=== PATIENT | male | born 1975 | race Two or more races ===

== ENCOUNTER 2025-06-23 11:17 | Inpatient (IN) | payer OTHER ==
[~2025-06-23] VITALS: Ht 170.2 cm; Wt 86.5 kg
--- NOTE | 2025-06-23 12:16 | DVH ---
EXAM: XY CHEST PORTABLE Indication: chest pain Technique: Single frontal view of the chest was obtained Comparison: None FINDINGS: Lines and Tubes: None Lungs: No focal consolidation. Pleura: No effusion. No pneumothorax. Cardiomediastinal contours: Unremarkable Bones: No acute osseous abnormality. IMPRESSION: No acute cardiopulmonary disease.
--- NOTE | 2025-06-23 12:23 | ECG ---
[facility] Test Date: 2025-06-23 Test Time: 12:22:19 Pat Name: TRAY HAMMOND Department: ED Room: 0212T Gender: M Civil Celebrant: GEORGE : 1975 Requested By: ZACHARY ARENAS Order Number: [id number] Reading MD: Mitchell Riddle Measurements Intervals [place] Rate: 60 P: 6 [place]: 142 QRS: 4 QRSD: 90 T: -1 QT: 402 QTc: 402 Interpretive Statements Sinus rhythm Borderline repolarization abnormality Electronically Signed On 06-26-2025 20:31:43 PDT by Mitchell Riddle Please click the below link to view image of tracing.
[2025-06-23 12:28] LABS: Hematocrit 47.1 % (41.0-53.0); Hemoglobin 16.2 g/dL (13.5-17.5); Mean Corpuscular Hemoglobin 31.3 pg (28.0-32.0); Mean Corpuscular Volume 91.0 fL (80.0-100.0); Nucleated Red Blood Cells % 0.1 %
[2025-06-23 12:30] LABS: Chloride 107 mmol/L (98-107); Potassium 4.2 mmol/L (3.5-5.1); Sodium 143 mmol/L (136-145)
[2025-06-23 12:31] LABS: Anion Gap 9 (5-15); Carbon Dioxide 27 mmol/L (20-31)
--- NOTE | 2025-06-23 12:31 | ED.PDOC ---
History of Present Illness HPI Comments 50-year-old male presents to the ER with prior medical history of vertigo in the chief complaint of chest pain. Patient reports on having dizziness, nausea, left arm numbness come is, dry mouth, left-sided chest pain(7/10) while he was at work yesterday. When the patient went home, he took meclizine due from him assuming the these onset symptoms are from his vertigo. The patient woke up this morning with mild and chest pain. Denies chills, fever, N/V/D. No other associated symptoms, modifiers, recent injuries or sick contacts present at this time. Chief Complaint: Chest Pain Time Seen by MD: 12:30 Primary Care Provider: NONE Reviewed Notes: Nurses Notes, Medications, Allergies Allergies: Coded Allergies: NO KNOWN ALLERGIES (Unverified , 04/26/13) Home Meds No Active Prescriptions or Reported Meds Information Source: Patient Mode of Arrival: Ambulatory Severity: Moderate Timing: Hours Duration: Since onset, Hours Prehospital treatment: None Past Medical History PAST MEDICAL HISTORY: Denies Surgical History: Denies all surgeries Family History Family History: Reviewed,noncontributory to illness, Unknown Social History Smoker: Non-Smoker Alcohol: Other Drugs: Denies Drug Use Lives In: Home Constitutional: denies: chills, diaphoresis, fatigue, fever, malaise, sweats, weakness, others EENTM: denies: blurred vision, double vision, ear bleeding, ear discharge, ear drainage, ear pain, ear ringing, eye pain, eye redness, hearing loss, mouth pain, mouth swelling, nasal discharge, nose bleeding, nose congestion, nose pain, photophobia, tearing, throat pain, throat swelling, voice changes, others Respiratory: reports: shortness of breath; denies: cough, hemoptysis, orthopnea, SOB at rest, SOB with excertion, stridor, wheezing, others Cardiovascular: reports: chest pain, left arm pain; denies: dizzy spells, diaphoresis, Dyspnea on exertion, edema, irregular heart beat, lightheadedness, palpitations, PND, syncope, others Gastrointestinal: denies: abdomen distended, abdominal pain, blood streaked bowels, constipated, diarrhea, dysphagia, difficulty swallowing, hematemesis, melena, nausea, poor appetite, poor fluid intake, rectal bleeding, rectal pain, vomiting, others Genitourinary: denies: burning, dysuria, flank pain, frequency, hematuria, incontinence, penile discharge, penile sore, pain, testicle pain, testicle swelling, urgency, others Neurological: reports: dizziness; denies: fainting, headache, left sided numbness, left sided weakness, numbness, paresthesia, pre-existing deficit, right sided numbness, right sided weakness, seizure, speech problems, tingling, tremors, weakness, others Musculoskeletal: denies: back pain, gout, joint pain, joint swelling, muscle pain, muscle stiffness, neck pain, others Integumetry: denies: bruises, change in color, change in hair/nails, dryness, laceration, lesions, lumps, rash, wounds, others Allergic/Immunocompromised: denies: Difficulty Healing, Frequent Infections, Hives, Itching, others Hematologic/Lymphatic: denies: anemia, blood clots, easy bleeding, easy bruising, swollen glands, others Endocrine: denies: excessive hunger, excessive sweating, excessive thirst, excessive urination, flushing, intolerance to cold, intolerance to heat, unexplained weight gain, unexplained weight loss, others Psychiatric: denies: anxiety, bipolar disorder, depression, hopeless, panic disorder, schizophrenia, sleepless, suicidal, others All Other Systems: Reviewed and Negative Physical Exam General Appearance: No Apparent Distress, Normal HEENT: Normal ENT Inspection, Pharynx Normal, TMs Normal Neck: Full Range of Motion, Non-Tender, Normal, Normal Inspection Respiratory: Chest Non-Tender, Lungs Clear, No Accessory Muscle Use, No Respiratory Distress, Normal Breath Sounds Cardiovascular: No Edema, No JVD, No Murmur, No Gallop, Normal Peripheral Pulses, Regular Rate/Rhythm Breast Exam: Deferred Gastrointestinal: No Organomegaly, Non Tender, No Pulsatile Mass, Normal Bowel Sounds, Soft Genitalia: Deferred Pelvic: Deferred Rectal: Deferred Extremities: No calf tenderness, Normal capillary refill, Normal inspection, Normal range of motion, Non-tender, No pedal edema Musculoskeletal : Apperance: Normal Neurologic: Alert, primary special education teacher II-XII nml as Tested, No Motor Deficits, Normal Affect, Normal Mood, No Sensory Deficits Cerebellar Function: Normal Reflexes: Normal Skin: Dry, Normal Color, Warm Lymphatic: No Adenopathy Was a procedure done? Was a procedure done?: No EKG EKG : Pulse Rate (adult): 64 [place]: Normal Cardiac Rhythm: NSR Block: None Hypertrophy: None ST: Normal Differential Dx Considerations may include: acs, cva, viral syndrome, uti X-Ray, Labs, Meds, VS Vital Signs Date Time Temp Pulse Resp B/P (MAP) Pulse Ox O2 Delivery O2 Flow Rate FiO2 06/23/25 14:20 54 06/23/25 13:18 65 17 138/87 (104) 97 06/23/25 12:31 64 06/23/25 12:22 60 06/23/25 11:41 64 06/23/25 11:25 97.8 70 18 141/91 96 97.8 06/23/25 11:23 64 Lab Test 06/23/25 14:51 06/23/25 13:21 06/23/25 12:05 Range/Units Troponin I High Sensitivity Pending < 3 L < 3 L </=54 ng/L White Blood Count 5.5 4.4-10.8 10^3/uL Red Blood Count 5.17 4.5-5.90 10^6/uL Hemoglobin 16.2 13.5-17.5 g/dL Hematocrit 47.1 41.0-53.0 % Mean Corpuscular Volume 91.0 80.0-100.0 fL Mean Corpuscular Hemoglobin 31.3 28.0-32.0 pg Mean Corpuscular Hemoglobin Concent 34.4 32.0-36.0 g/dL Red Cell Distribution Width 13.2 11.8-14.3 % Platelet Count 220 140-450 10^3/uL Mean Platelet Volume 8.7 6.9-10.8 fL Neutrophils (%) (Auto) 50.8 37.0-80.0 % Lymphocytes (%) (Auto) 39.1 10.0-50.0 % Monocytes (%) (Auto) 7.4 0.0-12.0 % Eosinophils (%) (Auto) 2.2 0.0-7.0 % Basophils (%) (Auto) 0.5 0.0-2.0 % Neutrophils # (Auto) 2.8 1.6-8.6 10 ^3/uL Lymphocytes # (Auto) 2.2 0.4-5.4 10 ^3/uL Monocytes # (Auto) 0.4 0-1.3 10 ^3/uL Eosinophils # (Auto) 0.1 0-0.8 10 ^3/uL Basophils # (Auto) 0 0-0.2 10 ^3/uL Nucleated Red Blood Cells 0.1 % Sodium Level 143 136-145 mmol/L Potassium Level 4.2 3.5-5.1 mmol/L Chloride Level 107 98-107 mmol/L Carbon Dioxide Level 27 20-31 mmol/L Anion Gap 9 5-15 Blood Urea Nitrogen 13 9-23 mg/dL Creatinine 0.96 0.700-1.30 mg/dL Glomerular Filtration Rate Calc 95 >90 mL/min BUN/Creatinine Ratio 13.5 10.0-20.0 Serum Glucose 102 74-106 mg/dL Calcium Level 9.3 8.7-10.4 mg/dL Time of 1ST Reevaluation: 13:00 Reevaluation 1ST: Unchanged Patient Education/Counseling: Diagnosis, Treatment, Prognosis Family Education/Counseling: No Family Present SEPSIS Sepsis Screen Date sepsis recognized/suspect: Jun 23, 2025 Time Sepsis recognized/suspect: 8 Recent Procedure: No Respiratory Rate >20: No Heart Rate >90: No Temp<36 C (96.8 F) or >38.3 C: No SBP <90 or MAP <65 mmHG: No New Acute Mental Status Change: No Is the patient on CPAP, BIPAP,: No Physician Orders Troponin-I Hs (06/23/25 14:43) Electrocardigram (06/23/25 12:43) Electrocardigram (06/23/25 14:43) Chest Portable (06/23/25 11:44) Vital Signs Date Time Temp Pulse Resp B/P (MAP) Pulse Ox O2 Delivery O2 Flow Rate FiO2 06/23/25 14:20 54 06/23/25 13:18 65 17 138/87 (104) 97 06/23/25 12:31 64 06/23/25 12:22 60 06/23/25 11:41 64 06/23/25 11:25 97.8 70 18 141/91 96 97.8 06/23/25 11:23 64 Laboratory Tests Test 06/23/25 12:05 White Blood Count 5.5 10^3/uL (4.4-10.8) Departure 1 Departure Time of Disposition: 15:13 (Patient presented with chest pain that was concerning for possible STEMI, ACS, PE, Pneumonia, Muscle Strain, COPD, Dissection. Data: 1. I ordered and reviewed the result of at least 3 labs including a CBC, BMP, and Troponin. 2. I independently interpreted the following tests: EKG which shows sinus arrhythmia and Chest X-ray which shows benign chest.Risk:This patient has a high risk of morbidity due to further diagnostic testing or treatment and may suffer from an acute cardiac or respiratory disorder. Workup reveals concern for ACS and patient should be admitted for further workup and possible expert consultation. ) Impression: Primary Impression: Acute chest pain Disposition: ADMITTED INPATIENT Admit to: Tele Condition: Guarded e-Prescriptions No Active Prescriptions or Reported Meds Critical Care Note Critical Care Time?: Yes Critical care comment: Acute chest pain Authorized and Performed by: Zachary Hardin MD Total critical care time: Approximately 39 minutes Due to a high probability of clinically significant, life threatening deterio ration, the patient required my highest level of preparedness to intervene emergently and I personally spent this critical care time directly and personally managing the patient. This critical care time included obtaining a history; examining the patient; pulse oximetry; ordering and review of studies; arranging urgent treatment with development of a management plan; evaluation of patient's response to treatment; frequent reassessment; and, discussions with other providers. This critical care time was performed to assess and manage the high probability of imminent, life-threatening deterioration that could result in multi-organ failure. It was exclusive of separately billable procedures and treating other patients and teaching time. Please see my other sections and the rest of the note for further information on patient assessment and treatment. Stability Stability form required: No Heart Score Heart Score: Heart Score Response (Comments) Value History Slightly Suspicious 0 EKG Repolarization Disturb 1 Age 45-64 1 Risk Factors >3 or Hx ASHD 2 Troponin >3 x's Normal limit 2 Total 6 I personally scribed for ZACHARY HARDIN MD ([email or web address]) on 06/23/25 at 12:31. Electronically submitted by Jamie Ramos ([email or web address]). ZACHARY HARDIN MD Jun 23, 2025 12:31
[2025-06-23 12:32] LABS: Calcium 9.3 mg/dL (8.7-10.4)
[2025-06-23 12:36] LABS: BUN/Creatinine Ratio 13.5 (10.0-20.0); Blood Urea Nitrogen 13 mg/dL (9-23); Glucose 102 mg/dL (74-106)
[2025-06-23] MEDS ORDERED: NITROGLYCERIN 0.4 MG SL TAB SL PRN (16:15)
--- NOTE | 2025-06-23 16:18 | DVHHP2 ---
History of Present Illness History of Present Illness Patient is 50 years old male with past medical history of hypertension, history of chronic vertigo came with a complaint of chest pain. As per patient he st arted having chest pain yesterday at work associated tingling of the left arm that came gradually. Patient reported tingling of the left arm started then followed by pain in the left chest, sharp, the on the left side of the chest, initially intermittent then persistent, 7/10, associated with shortness of breaths, palpitation. Patient also reported he was feeling dizzy at the same time. After the patient went to home and he wake up with chest pain and also tingling of the left arm. Patient denied any fever, cough, diarrhea, acute joint redness or swelling, dysarthria or change in vision. Initial lab workup revealed troponin I with a normal limit, chest x-ray no acute abnormality. EKG revealed sinus rhythm, no acute STT wave changes. PMH-hypertension, history of chronic vertigo PSH- none Family history-mom has diabetes mellitus and hypertension, dad healthy Allergy- NKDA Personal History/ Social History- occasional smoker once in a month, denies alcoholism or substance abuse, lives alone at home Medications-amlodipine, meclizine Review of Systems Review of Systems Review of other system Gastrointestinal- denies any rectal bleeding, nausea or vomiting Musculoskeletal-denies acute joint swelling or tenderness or redness Neurological- denies acute dysarthria, dysphagia, change in vision Psychiatry- denies depression or SI or HI Skin- denies acute rash or purpura Allergies: Coded Allergies: NO KNOWN ALLERGIES (Unverified , 04/26/13) Medications Current Medications Medications Dose Ordered Sig/Logan Route Start Time Stop Time Status Last Admin Dose Admin Sodium Chloride 10 ml Q8HR IV 06/23/25 22:00 UNV Enoxaparin Sodium 40 mg DAILY SC 06/24/25 10:00 UNV Nitroglycerin 0.4 mg Q5MINP PRN SL 06/23/25 16:15 UNV Morphine Sulfate 2 mg Q30M PRN IV 06/23/25 16:15 UNV Exam Vital Signs Vital Signs Date Time Temp Pulse Resp B/P (MAP) Pulse Ox O2 Delivery O2 Flow Rate FiO2 06/23/25 14:20 54 06/23/25 13:18 17 138/87 (104) 97 06/23/25 11:25 97.8 97.8 Exam General examination- awake, alert, oriented HEENT- PEERLA, no acute nasal discharge Cardiovascular- S1-S2 audible, rate and rhythm regular, no murmur Respiratory- CTAB, no wheeze or rhonchi Gastrointestinal-nontender, bowel sound+. Nondistended Musculoskeletal-no acute joint swelling or tenderness or redness Lower extremity- no leg edema Neurological- cranial nerves intact, no acute dysarthria or dysphagia Psychiatry- denies depression or SI or HI Skin- no acute rash or purpura Labs/Xrays Labs Test 06/23/25 14:51 06/23/25 12:05 Range/Units Troponin I High Sensitivity < 3 L </=54 ng/L White Blood Count 5.5 4.4-10.8 10^3/uL Red Blood Count 5.17 4.5-5.90 10^6/uL Hemoglobin 16.2 13.5-17.5 g/dL Hematocrit 47.1 41.0-53.0 % Mean Corpuscular Volume 91.0 80.0-100.0 fL Mean Corpuscular Hemoglobin 31.3 28.0-32.0 pg Mean Corpuscular Hemoglobin Concent 34.4 32.0-36.0 g/dL Red Cell Distribution Width 13.2 11.8-14.3 % Platelet Count 220 140-450 10^3/uL Mean Platelet Volume 8.7 6.9-10.8 fL Neutrophils (%) (Auto) 50.8 37.0-80.0 % Lymphocytes (%) (Auto) 39.1 10.0-50.0 % Monocytes (%) (Auto) 7.4 0.0-12.0 % Eosinophils (%) (Auto) 2.2 0.0-7.0 % Basophils (%) (Auto) 0.5 0.0-2.0 % Neutrophils # (Auto) 2.8 1.6-8.6 10 ^3/uL Lymphocytes # (Auto) 2.2 0.4-5.4 10 ^3/uL Monocytes # (Auto) 0.4 0-1.3 10 ^3/uL Eosinophils # (Auto) 0.1 0-0.8 10 ^3/uL Basophils # (Auto) 0 0-0.2 10 ^3/uL Nucleated Red Blood Cells 0.1 % Sodium Level 143 136-145 mmol/L Potassium Level 4.2 3.5-5.1 mmol/L Chloride Level 107 98-107 mmol/L Carbon Dioxide Level 27 20-31 mmol/L Anion Gap 9 5-15 Blood Urea Nitrogen 13 9-23 mg/dL Creatinine 0.96 0.700-1.30 mg/dL Glomerular Filtration Rate Calc 95 >90 mL/min BUN/Creatinine Ratio 13.5 10.0-20.0 Serum Glucose 102 74-106 mg/dL Calcium Level 9.3 8.7-10.4 mg/dL SEPSIS Sepsis Screen Date sepsis recognized/suspect: Jun 23, 2025 Time Sepsis recognized/suspect: 1127 Recent Procedure: No Respiratory Rate >20: No Heart Rate >90: No Temp<36 C (96.8 F) or >38.3 C: No SBP <90 or MAP <65 mmHG: No New Acute Mental Status Change: No Is the patient on CPAP, BIPAP,: No Physician Orders Electrocardigram (06/23/25 12:43) Electrocardigram (06/23/25 14:43) Chest Portable (06/23/25 11:44) Admit (06/23/25 16:14) Code Status (06/23/25 16:14) Sodium Chloride Lock (Saline Lock Ns) (06/23/25 22:00) Enoxaparin Sodium (Lovenox) (06/24/25 10:00) Complete Blood Count (06/24/25 04:00) Comprehensive Metabolic Panel (06/24/25 04:00) Cardiac Diet-2gna,Lofat,Lochol (06/23/25 Dinner) Echo 2d Mode Cardiac Dop (06/23/25 16:14) Nitroglycerin Sublingual (Ntrostat Subli (06/23/25 16:15) Morphine Sulfate Injection (06/23/25 16:15) Notify Md Of Changes From Base (06/23/25 16:14) Tunnel Elastic Operator Zigzag For 24 Hours (06/23/25 16:14) Aspirin Tablet (06/23/25 16:30) Atorvastatin (Lipitor) (06/23/25 16:30) Pantoprazole Tablet (Protonix Tablet) (06/23/25 16:30) Vital Signs Date Time Temp Pulse Resp B/P (MAP) Pulse Ox O2 Delivery O2 Flow Rate FiO2 06/23/25 14:20 54 06/23/25 13:18 65 17 138/87 (104) 97 06/23/25 12:31 64 06/23/25 12:22 60 06/23/25 11:41 64 06/23/25 11:25 97.8 70 18 141/91 96 97.8 06/23/25 11:23 64 Laboratory Tests Test 06/23/25 12:05 White Blood Count 5.5 10^3/uL (4.4-10.8) Assessment/Plan Assessment/Plan Assessment and plan Acute chest pain likely due to unstable angina #rule out acute coronary syndrome # hypertension -EKG sinus rhythm, no acute STT wave changes, - troponin I with In normal limit -pending echo 2D -ordered aspirin 81 mg p.o. daily -ordered atorvastatin 40 mg p.o. q.h.s. # dizziness -ordered orthostatic vitals # chronic vertigo -meclizine PRN Goals of care, Code status full code ; discussed with >15 minutes PUD prophylaxis: Pantoprazole DVT prophylaxis: Lovenox Plan discussed with Dr. Capellan , nursing staff, Total time spent on patient evaluation, chart review, assessment and plan, discussion discussion >35 minutes Plan discussed with: Patient, Other (RN) My Orders Orders - JENNIE ROBLERO RESIDENT Procedure Category Date Status Time Admit ADMIT 06/23/25 Transmitted 16:14 Code Status CODE 06/23/25 Transmitted 16:14 Sodium Chloride Lock PHA 06/23/25 Logged (Saline Lock Ns) 22:00 Enoxaparin Sodium PHA 06/24/25 Logged (Lovenox) 10:00 Complete Blood Count LAB 06/24/25 Verified 04:00 Comprehensive LAB 06/24/25 Verified Metabolic Panel 04:00 Cardiac DIET 06/23/25 Transmitted Diet-2gna,Lofat,Lochol Dinner Echo 2d Mode Cardiac US 06/23/25 Logged DOP 16:14 Nitroglycerin PHA 06/23/25 Logged Sublingual (Ntrostat 16:15 Morphine Sulfate PHA 06/23/25 Logged Injection 16:15 Notify Of Changes AUGUSTIN 06/23/25 In Process From Base 16:14 Tunnel Elastic Operator Zigzag For AUGUSTIN 06/23/25 In Process 24 Hours 16:14 Aspirin Tablet PHA 06/23/25 Transmitted 16:30 Atorvastatin (Lipitor) PHA 06/23/25 Transmitted 16:30 Pantoprazole Tablet PHA 06/23/25 Transmitted (Protonix Tablet) 16:30 Date of Service: Jun 23, 2025 Billing Provider: PRERNA CAPELLAN MD Common Visit Codes: [id number] INP/OBS CARE (HIGH) Secondary Visit Codes: [id number] CARE PLAN 30 MINUTES JENNIE ROBLERO RESIDENT Jun 23, 2025 16:18
[2025-06-23] MEDS ORDERED: MORPHINE SULFATE 4 MG/ML SYR/VIAL IV PRN (16:30)
[2025-06-23] MEDS: PANTOPRAZOLE 40 MG TAB PO SCH (17:08)
[2025-06-23] MEDS: ATORVASTATIN 20 MG TAB PO SCH (17:08)
[2025-06-23] MEDS: MECLIZINE HCL 25 MG TAB PO PRN (17:09)
[2025-06-23 18:48] LABS: INR 1.01 (0.9-1.15); Partial Thromboplastin Time 28.2 SEC (24.5-34.5); Prothrombin Time 10.7 sec (9.3-11.8)
[2025-06-23 19:03] LABS: Alanine Aminotransferase 34 U/L (7-40); Alkaline Phosphatase 67 U/L (46-116); Anion Gap 13 (5-15); BUN/Creatinine Ratio 14.1 (10.0-20.0); Bilirubin, Total 0.9 mg/dL (0.2-1.0); Blood Urea Nitrogen 14 mg/dL (9-23); Calcium 9.5 mg/dL (8.7-10.4); Carbon Dioxide 25 mmol/L (20-31); Chloride 106 mmol/L (98-107); Glucose 96 mg/dL (74-106); Potassium 4.3 mmol/L (3.5-5.1); Sodium 144 mmol/L (136-145); Total Protein 7.5 g/dL (5.7-8.2)
[2025-06-23 19:07] LABS: Albumin 4.8 g/dL (3.2-4.8)
--- NOTE | 2025-06-23 19:24 | ECG ---
[facility] Test Date: 2025-06-23 Test Time: 14:20:23 Pat Name: TRAY HAMMOND Department: ED Room: 0212T Gender: M Crew Clerk: : 1975 Requested By: ZACHARY ARENAS Order Number: [id number] Reading MD: Mitchell Riddle Measurements Intervals [place] Rate: 54 P: -11 [place]: 179 QRS: 13 QRSD: 90 T: -2 QT: 423 QTc: 401 Interpretive Statements Sinus rhythm Electronically Signed On 06-26-2025 20:32:00 PDT by Mitchell Riddle Please click the below link to view image of tracing.
[2025-06-23 21:00] VITALS: BP 156/99; PULSE 63; RESP 16; TEMP 97.8; O2SAT 99
[2025-06-23] MEDS: SODIUM CHLOR 0.9% PF (SALINE LOCK) 10ML VIAL/SYR IV SCH (21:46)
[2025-06-23 21:50] LABS: Urine Protein, UAD TRACE (Negative)
[2025-06-23 22:27] VITALS: BP 156/99; PULSE 63; RESP 16; TEMP 97.8; O2SAT 99
[2025-06-23 22:30] VITALS: BP 125/80; PULSE 58
[2025-06-24] VITALS (10 sets, daily range): BP systolic 0–157; BP diastolic 70–100; PULSE 53–82; RESP 15–16; TEMP 97.5–98.9; O2SAT 95–97
[2025-06-24 06:45] LABS: Hematocrit 40.8 % (41.0-53.0); Hemoglobin 14.4 g/dL (13.5-17.5); Mean Corpuscular Hemoglobin 32.1 pg (28.0-32.0); Mean Corpuscular Volume 91.2 fL (80.0-100.0); Nucleated Red Blood Cells % 0.1 %
[2025-06-24 06:58] LABS: Alanine Aminotransferase 30 U/L (7-40); Albumin 4.2 g/dL (3.2-4.8); Alkaline Phosphatase 53 U/L (46-116); Anion Gap 11 (5-15); BUN/Creatinine Ratio 14.1 (10.0-20.0); Blood Urea Nitrogen 14 mg/dL (9-23); Calcium 8.9 mg/dL (8.7-10.4); Carbon Dioxide 26 mmol/L (20-31); Chloride 106 mmol/L (98-107); Glucose 90 mg/dL (74-106); Potassium 3.7 mmol/L (3.5-5.1); Sodium 143 mmol/L (136-145); Total Protein 6.7 g/dL (5.7-8.2)
[2025-06-24 06:59] LABS: Bilirubin, Total 1.2 mg/dL (0.2-1.0)
[2025-06-24 07:23] LABS: Magnesium 2.4 mg/dL (1.6-2.6)
[2025-06-24] MEDS: ENOXAPARIN SOD 40 MG/0.4 ML SYRINGE SC SCH (09:56)
--- NOTE | 2025-06-24 12:29 | DVHPNRES ---
Progress Note Date Seen: Jun 24, 2025 Resident Creating Document: JENNIE ROBLERO RESIDENT Medical Necessity Reason Pt with a Central, PICC or Fol: No Subjective Review of Systems Patient is 50 years old male with past medical history of hypertension, history of chronic vertigo came with a complaint of chest pain. As per patient he s tarted having chest pain yesterday at work associated tingling of the left arm that came gradually. Patient reported tingling of the left arm started then followed by pain in the left chest, sharp, the on the left side of the chest, initially intermittent then persistent, 7/10, associated with shortness of breaths, palpitation. Patient also reported he was feeling dizzy at the same time. After the patient went to home and he wake up with chest pain and also tingling of the left arm. Patient denied any fever, cough, diarrhea, acute joint redness or swelling, dysarthria or change in vision. Initial lab workup revealed troponin I with a normal limit, chest x-ray no acute abnormality. EKG revealed sinus rhythm, no acute STT wave changes. PMH-hypertension, history of chronic vertigo PSH- none Family history-mom has diabetes mellitus and hypertension, dad healthy Allergy- NKDA Personal History/ Social History- occasional smoker once in a month, denies alcoholism or substance abuse, lives alone at home Medications-amlodipine, meclizine Patient was seen today at bedside, labs and chart reviewed. Ordered cardiology consult for possible cardiac stress test. Cardiology recommended for nuclear stress test. Patient reported feeling better today. Objective vital signs Vital Sign Date Time Temp Pulse Resp B/P (MAP) Pulse Ox O2 Delivery O2 Flow Rate FiO2 06/24/25 09:55 121/79 06/24/25 09:00 97.6 59 16 96 97.6 06/24/25 08:10 Room Air* 0 21 Total Intake and Output 06/23/25 06/23/25 06/24/25 15:00 23:00 07:00 Intake Total 400 ml Balance 400 ml medications Current Medications Medications Dose Ordered Sig/Logan Route Start Time Stop Time Status Last Admin Dose Admin Sodium Chloride 10 ml Q8HR IV 06/23/25 22:00 06/24/25 09:56 10 ML Enoxaparin Sodium 40 mg DAILY SC 06/24/25 10:00 06/24/25 09:56 40 MG Nitroglycerin 0.4 mg Q5MINP PRN SL 06/23/25 16:15 Morphine Sulfate 2 mg Q30M PRN IV 06/23/25 16:30 Atorvastatin Calcium 40 mg HS PO 06/23/25 16:30 06/23/25 21:46 40 MG Pantoprazole Sodium 40 mg DAILY@0600 PO 06/23/25 16:30 06/24/25 05:07 40 MG Aspirin 81 mg DAILY PO 06/24/25 10:00 06/24/25 09:55 81 MG Amlodipine Besylate 5 mg DAILY PO 06/24/25 10:00 06/24/25 09:55 5 MG Meclizine HCl 25 mg Q6HPRN PRN PO 06/23/25 16:30 06/24/25 05:12 25 MG Examination General examination- awake, alert, oriented HEENT- PEERLA, no acute nasal discharge Cardiovascular- S1-S2 audible, rate and rhythm regular, no murmur Respiratory- CTAB, no wheeze or rhonchi Gastrointestinal-nontender, bowel sound+. Nondistended Musculoskeletal-no acute joint swelling or tenderness or redness Lower extremity- no leg edema Neurological- cranial nerves intact, no acute dysarthria or dysphagia Psychiatry- denies depression or SI or HI Skin- no acute rash or purpura laboratory and microbiology Laboratory Tests 06/24/25 04:41 Test 06/24/25 04:41 Range/Units Serum Glucose 90 74-106 mg/dL Problem List/Assessment/Plan Problem List/Assessment/Plan Assessment and plan Acute chest pain likely due to unstable angina #rule out acute coronary syndrome # hypertension -EKG sinus rhythm, no acute STT wave changes, - troponin I with In normal limit -echo 2D - aspirin 81 mg p.o. daily - atorvastatin 40 mg p.o. q.h.s. -ordered cardiology consult for possible stress test, -status post cardiology consult, recommended for nuclear stress test # dizziness -ordered orthostatic vitals -Jonel-Hallpike maneuver negative # chronic vertigo -meclizine PRN Goals of care, Code status full code ; discussed with >15 minutes PUD prophylaxis: Pantoprazole DVT prophylaxis: Lovenox Plan discussed with Dr. Capellan , nursing staff, Total time spent on patient evaluation, chart review, assessment and plan, discussion discussion >35 minutes Plan discussed with: Patient, Other (RN) Plan discussed with: Patient, Other (RN) My Orders My Orders Orders - JENNIE ROBLERO Procedure Category Date Status Time Admit ADMIT 06/23/25 Transmitted 16:14 Code Status CODE 06/23/25 Transmitted 16:14 Sodium Chloride Lock PHA 06/23/25 In Process (Saline Lock Ns) 22:00 Enoxaparin Sodium PHA 06/24/25 In Process (Lovenox) 10:00 Cardiac DIET 06/23/25 Transmitted Diet-2gna,Lofat,Lochol Dinner Nitroglycerin PHA 06/23/25 In Process Sublingual (Ntrostat 16:15 Notify Md Of Changes AUGUSTIN 06/23/25 In Process From Base 16:14 Physician/Allergy/Immunology For AUGUSTIN 06/23/25 In Process 24 Hours 16:14 Atorvastatin (Lipitor) PHA 06/23/25 In Process 16:30 Pantoprazole Tablet PHA 06/23/25 In Process (Protonix Tablet) 16:30 Orthostatic Vital ORDERS 06/23/25 Transmitted Signs 16:22 Morphine Sulfate PHA 06/23/25 In Process Injection 16:30 Aspirin Tablet PHA 06/24/25 In Process 10:00 Amlodipine Tablet PHA 06/24/25 In Process (Norvasc Tablet) 10:00 Meclizine Tablet PHA 06/23/25 In Process (Antivert Tablet) 16:30 Electrocardigram EKG 06/23/25 Logged 17:55 Echo 2d Mode Cardiac US 06/24/25 Logged DOP 16:14 * Cardiology Consult CONS 06/24/25 Transmitted 11:52 Date of Service: Jun 24, 2025 Billing Provider: JENNIE ROBLERO Common Visit Codes: [id number] INP/OBS CARE(HIGH) JENNIE ROBLERO Jun 24, 2025 12:29 PRERNA CAPELLAN MD Jun 24, 2025 20:07
--- NOTE | 2025-06-24 15:26 | DVHINCON2 ---
Date Seen: Jun 24, 2025 Referring Physician MD Juliano resident Reason for Consultation Chest pain, stress test evaluation History of Present Illness This is a 50-year-old male patient who presents to the emergency room with chief complaint of chest pain. The patient reports that the chest pain began on 06/21/2025 while at work. He began experiencing a headache first. He then described left arm numbness which then traveled all the way to the left side of his chest. He describes the chest pain as unprovoked, intermittent, pressure- like in nature, left-sided with radiation down his left arm. Associated symptoms include shortness of breath, dizziness, and nausea. He came to the emergency room for further evaluation. Initial twelve lead electrocardiogram reveals normal sinus rhythm this minimal nonspecific ST segment changes to inferior leads. Serial troponin levels have been negative. Significant past medical history includes hypertension, vertigo, tobacco use, and obesity. Patient admits to undergoing a stress test approximately five years ago, in which he reports results were normal. Past Medical History Past medical history reviewed. No other significant than mentioned above. Past Surgical History Hernia repair Family History: Hyperlipidemia G8 MOTHER Hypertension G8 MOTHER Vertigo G8 MOTHER Family History Family history reviewed. Social History Patient admits to occasional cigar use Denies illicit drugs Denies alcohol Allergies: Coded Allergies: NO KNOWN ALLERGIES (Unverified , 04/26/13) Home Meds Denies taking any prescribed medications Current Medications Current Medications Medications (Trade) Dose Ordered Sig/Logan Route PRN Reason Start Time Stop Time Status Last Admin Sodium Chloride (Saline Lock Ns) 10 ml Q8HR IV 06/23/25 22:00 06/24/25 09:56 Enoxaparin Sodium (Lovenox) 40 mg DAILY SC 06/24/25 10:00 06/24/25 09:56 Nitroglycerin (Ntrostat Sublingual) 0.4 mg Q5MINP PRN SL FOR CHEST PAIN 06/23/25 16:15 Morphine Sulfate 2 mg Q30M PRN IV FOR CHEST PAIN 06/23/25 16:30 Atorvastatin Calcium (Lipitor) 40 mg HS PO 06/23/25 16:30 06/23/25 21:46 Pantoprazole Sodium (Protonix Tablet) 40 mg DAILY@0600 PO 06/23/25 16:30 06/24/25 05:07 Aspirin 81 mg DAILY PO 06/24/25 10:00 06/24/25 09:55 Amlodipine Besylate (Norvasc Tablet) 5 mg DAILY PO 06/24/25 10:00 06/24/25 09:55 Meclizine HCl (Antivert Tablet) 25 mg Q6HPRN PRN PO DIZZINESS 06/23/25 16:30 06/24/25 05:12 Review of Systems Constitutional: No symptom reported Ears, Nose, & Throat: No symptom reported Eyes: No symptom reported Neurological: Lightheadedness Pulmonary/Respiratory: Shortness of breath Cardiovascular: Chest pain Gastrointestinal: Nausea Genitourinary: No symptom reported Musculoskeletal: No symptom reported Skin: No symptom reported Psychiatric: No symptom reported Endocrine: No symptom reported Hematologic/Lymphatic: No symptom reported Vital Signs Vital Signs Date Time Temp Pulse Resp B/P (MAP) Pulse Ox O2 Delivery O2 Flow Rate FiO2 06/24/25 13:00 98.9 63 15 128/78 (95) 96 98.9 06/24/25 08:10 Room Air* 0 21 Physical Exam General Appearance: Cooperative. Obese Pulmonary/Respiratory: Clear, bilateral breaths sounds. Cardiovascular/Chest: Regular rate and rhythm. Peripheral Pulses: 2+ Radial (R). 2+ Radial (L). 2+ Pedal (R). 2+ Pedal (L) Abdominal Exam: Normal bowel sounds. Ankle Exam: Negative ankle edema Lower extremities: Negative lower extremity edema Neuro/Mental Status: A/OX4, coherent. Thoughts/Psych: Normal thought pattern. Appropriate mood and affect. Good judgment and insight. Appearance: No acute distress. Skin Exam: Normal inspection. Normal color. Warm and dry. Labs/Diagnostic Data Labs Test 06/24/25 14:57 06/24/25 04:41 06/23/25 20:58 06/23/25 14:51 Range/Units White Blood Count 5.7 4.4-10.8 10^3/uL Red Blood Count 4.47 L 4.5-5.90 10^6/uL Hemoglobin 14.4 13.5-17.5 g/dL Hematocrit 40.8 #L 41.0-53.0 % Mean Corpuscular Volume 91.2 80.0-100.0 fL Mean Corpuscular Hemoglobin 32.1 H 28.0-32.0 pg Mean Corpuscular Hemoglobin Concent 35.2 32.0-36.0 g/dL Red Cell Distribution Width 13.7 11.8-14.3 % Platelet Count 201 140-450 10^3/uL Mean Platelet Volume 9.0 6.9-10.8 fL Neutrophils (%) (Auto) 49.7 37.0-80.0 % Lymphocytes (%) (Auto) 35.5 10.0-50.0 % Monocytes (%) (Auto) 10.4 0.0-12.0 % Eosinophils (%) (Auto) 4.0 0.0-7.0 % Basophils (%) (Auto) 0.4 0.0-2.0 % Neutrophils # (Auto) 2.8 1.6-8.6 10 ^3/uL Lymphocytes # (Auto) 2.0 0.4-5.4 10 ^3/uL Monocytes # (Auto) 0.6 0-1.3 10 ^3/uL Eosinophils # (Auto) 0.2 0-0.8 10 ^3/uL Basophils # (Auto) 0 0-0.2 10 ^3/uL Nucleated Red Blood Cells 0.1 % Sodium Level 143 136-145 mmol/L Potassium Level 3.7 3.5-5.1 mmol/L Chloride Level 106 98-107 mmol/L Carbon Dioxide Level 26 20-31 mmol/L Anion Gap 11 5-15 Blood Urea Nitrogen 14 9-23 mg/dL Creatinine 0.99 0.700-1.30 mg/dL Glomerular Filtration Rate Calc 92 >90 mL/min BUN/Creatinine Ratio 14.1 10.0-20.0 Serum Glucose 90 74-106 mg/dL Calcium Level 8.9 8.7-10.4 mg/dL Magnesium Level 2.4 1.6-2.6 mg/dL Total Bilirubin 1.2 H 0.2-1.0 mg/dL Aspartate Amino Transferase (AST) 23 13-40 U/L Alanine Aminotransferase (ALT) 30 7-40 U/L Alkaline Phosphatase 53 46-116 U/L Total Protein 6.7 5.7-8.2 g/dL Albumin 4.2 3.2-4.8 g/dL Urine Color Yellow Yellow Urine Clarity Clear Clear Urine pH 5.5 5.0-9.0 Urine Specific [place] 1.031 1.001-1.035 Urine Protein Trace H Negative Urine Ketones Trace Negative Urine Blood 1+ H Negative /uL Urine Nitrite Negative Negative Urine Bilirubin Negative Negative Urine Urobilinogen Normal Negative mg/dL Urine Leukocyte Esterase Negative Negative /uL Urine RBC 9 0 - 3 /hpf Urine Microscopic WBC 2 0-3 /HPF Urine Squamous Epithelial Cells None seen <5 /hpf Urine Bacteria None seen None Seen /hpf Urine Mucus Few None Seen Urine Glucose Normal Normal mg/dL Prothrombin Time 10.7 9.3-11.8 sec Prothrombin Time INR 1.01 0.9-1.15 Activated Partial Thromboplast Time 28.2 24.5-34.5 SEC D-Dimer, Quantitative < 0.19 0.0-0.49 mg/L FEU Test 06/23/25 13:21 06/23/25 12:05 Range/Units Thyroid Stimulating Hormone (TSH) 1.61 0.55-4.78 uIU/mL Hemoglobin A1c 5.7 <5.7 % A1C B-Type Natriuretic Peptide 2.54 0-100 pg/mL Assessment Chest pain, rule out coronary ischemia Rule out structural heart disease Hypertension ?Anxiety Tobacco use Plan/Recommendation We will continue with the following plan/recommendations (Dr. Riddle): * Transthoracic echocardiogram to evaluate cardiac function * Chest pain protocol * HEART score: 4 points (moderate score) * Blood pressure control * Single antiplatelet therapy and lipid-lowering agent * Close cardiac surveillance * Nuclear stress test Given the patient's clinical presentation, moderate HEART score and comorbidities, we will offer the patient a nuclear stress test. Patient was initially offered treadmill stress test, but declined stating that he still feeling symptoms of lightheadedness and is afraid he might fall on the treadmill. Patient requesting nuclear stress test instead. Plan discussed with the patient and the patient is agreeable. Thank you for allowing us to care for this patient. Please call with any questions or concerns. Critical care time spent: 44 minutes This medical document was created using an electronic medical record system with voice recognition software and computerized dictation system. Although this document has been carefully reviewed, there might still be some phonetic and t ypographical errors. Occasional wrong-word or ``sound-alike substitutions may have occurred due to the inherent limitations of voice recognition software. These areas are purely typographical due to imperfections of the software programs and do not reflect any compromise in the patient's medical care. Please read the chart carefully and recognize, using context, where these hobbs bstitutions have occurred. Plan discussed with: Patient NYHA Physical activity limitations: NA Date of Service: Jun 24, 2025 Billing Provider: MARGO ORTIZ Cardiology Common Codes: 19176-[id number] INP/OBS CARE (High) Cardiology Consultation Codes: 50184-[id number] CONSULT <45MIN MARGO ORTIZ Jun 24, 2025 15:26
[2025-06-24 15:56] LABS: Cholesterol 200 mg/dL (< 200)
[2025-06-24 15:58] LABS: HDL Cholesterol 37 mg/dL (40-59); Triglycerides 167 mg/dL (< 150)
[2025-06-24 19:12] LABS: Amphetamine Screen, Urine Neg (NEGATIVE); Barbiturate Scree,Urine Neg (NEGATIVE); Benzodiazephine Screen, Urine Neg (NEGATIVE); Cannabinoid Screen, Urine Neg (NEGATIVE); Cocaine Screen, Urine Neg (NEGATIVE); Opiate Scree,Urine Neg (NEGATIVE); Phencyclidine Screen, Urine Neg (NEGATIVE)
[2025-06-24] MEDS: ZOLPIDEM TARTRATE 5 MG TAB PO ONE (23:02)
[2025-06-25] VITALS (8 sets, daily range): BP systolic 102–162; BP diastolic 77–98; PULSE 55–75; RESP 16–20; TEMP 97.5–98; O2SAT 95–97
[2025-06-25 06:39] LABS: Anion Gap 10 (5-15); Calcium 9.0 mg/dL (8.7-10.4); Carbon Dioxide 26 mmol/L (20-31); Chloride 106 mmol/L (98-107); Potassium 3.8 mmol/L (3.5-5.1); Sodium 142 mmol/L (136-145)
[2025-06-25 06:45] LABS: BUN/Creatinine Ratio 14.6 (10.0-20.0); Blood Urea Nitrogen 14 mg/dL (9-23); Glucose 99 mg/dL (74-106); Magnesium 2.4 mg/dL (1.6-2.6)
[2025-06-25] MEDS: REGADENOSON 0.4 MG/5 ML SYRG IV ONE (09:00)
[2025-06-25] MEDS ORDERED: REGADENOSON 0.4 MG/5 ML SYRG IV ONE (09:03)
--- NOTE | 2025-06-25 17:52 | DVHPNRES ---
Progress Note Date Seen: Jun 25, 2025 Resident Creating Document: JENNIE ROBLERO RESIDENT Medical Necessity Reason Pt with a Central, PICC or Fol: No Subjective Review of Systems Patient is 50 years old male with past medical history of hypertension, history of chronic vertigo came with a complaint of chest pain. As per patient he started having chest pain yesterday at work associated tingling of the left arm that came gradually. Patient reported tingling of the left arm started then followed by pain in the left chest, sharp, the on the left side of the chest, initially intermittent then persistent, 7/10, associated with shortness of breaths, palpitation. Patient also reported he was feeling dizzy at the same time. After the patient went to home and he wake up with chest pain and also tingling of the left arm. Patient denied any fever, cough, diarrhea, acute joint redness or swelling, dysarthria or change in vision. Initial lab workup revealed troponin I with a normal limit, chest x-ray no acute abnormality. EKG revealed sinus rhythm, no acute STT wave changes. PMH-hypertension, history of chronic vertigo PSH- none Family history-mom has diabetes mellitus and hypertension, dad healthy Allergy- NKDA Personal History/ Social History- occasional smoker once in a month, denies alcoholism or substance abuse, lives alone at home Medications-amlodipine, meclizine Patient was seen today at bedside, labs and chart reviewed. Patient had cardiac stress test today. Pending report. Orthostatic vitals negative. Pending echo 2D report. Possible discharge tomorrow Objective vital signs Vital Sign Date Time Temp Pulse Resp B/P (MAP) Pulse Ox O2 Delivery O2 Flow Rate FiO2 06/25/25 17:00 97.8 63 17 146/95 (112) 96 97.8 06/25/25 08:00 Room Air* 0 21 Total Intake and Output 06/24/25 06/24/25 06/25/25 15:00 23:00 07:00 Intake Total 600 ml 400 ml Balance 600 ml 400 ml medications Current Medications Medications Dose Ordered Sig/Logan Route Start Time Stop Time Status Last Admin Dose Admin Sodium Chloride 10 ml Q8HR IV 06/23/25 22:00 06/25/25 14:01 10 ML Enoxaparin Sodium 40 mg DAILY SC 06/24/25 10:00 06/25/25 10:57 40 MG Nitroglycerin 0.4 mg Q5MINP PRN SL 06/23/25 16:15 Morphine Sulfate 2 mg Q30M PRN IV 06/23/25 16:30 Atorvastatin Calcium 40 mg HS PO 06/23/25 16:30 06/24/25 22:20 40 MG Pantoprazole Sodium 40 mg DAILY@0600 PO 06/23/25 16:30 06/25/25 05:30 40 MG Aspirin 81 mg DAILY PO 06/24/25 10:00 06/25/25 10:55 81 MG Amlodipine Besylate 5 mg DAILY PO 06/24/25 10:00 06/25/25 10:56 5 MG Meclizine HCl 25 mg Q6HPRN PRN PO 06/23/25 16:30 06/24/25 05:12 25 MG Examination General examination- awake, alert, oriented HEENT- PEERLA, no acute nasal discharge Cardiovascular- S1-S2 audible, rate and rhythm regular, no murmur Respiratory- CTAB, no wheeze or rhonchi Gastrointestinal-nontender, bowel sound+. Nondistended Musculoskeletal-no acute joint swelling or tenderness or redness Lower extremity- no leg edema Neurological- cranial nerves intact, no acute dysarthria or dysphagia Psychiatry- denies depression or SI or HI Skin- no acute rash or purpura laboratory and microbiology Laboratory Tests 06/25/25 05:22 06/24/25 04:41 Test 06/25/25 05:22 Range/Units Serum Glucose 99 74-106 mg/dL Problem List/Assessment/Plan Problem List/Assessment/Plan Assessment and plan Acute chest pain, rule out acute coronary syndrome # rule out pericarditis/ musculoskeletal pain # hypertension -EKG sinus rhythm, no acute ST-T wave changes, - troponin I with In normal limit -echo 2D-pending report - aspirin 81 mg p.o. daily - atorvastatin 40 mg p.o. q.h.s. -status post cardiology consult -PATIENT HAS A NUCLEAR STRESS TEST TODAY, PENDING REPORT # dizziness - orthostatic vitals-negative -[place]-Hallpike maneuver negative # chronic vertigo -meclizine PRN Goals of care, Code status full code ; discussed with >15 minutes PUD prophylaxis: Pantoprazole DVT prophylaxis: Lovenox Plan discussed with Dr. Capellan , nursing staff, Total time spent on patient evaluation, chart review, assessment and plan, discussion discussion >35 minutes Plan discussed with: Patient, Other (RN) Plan discussed with: Patient, Other (RN) Date of Service: Jun 25, 2025 Billing Provider: JENNIE ROBLERO Common Visit Codes: [id number] INP/OBS CARE(HIGH) JENNIE ROBLERO Jun 25, 2025 17:52 PRERNA CAPELLAN MD Jun 25, 2025 19:25
[2025-06-25] MEDS: ZOLPIDEM TARTRATE 5 MG TAB PO PRN (22:20)
[2025-06-26 01:00] VITALS: BP_SYST 117; BP_SYST 125; BP_SYST 127; BP_DIAS 81; BP_DIAS 83; BP_DIAS 90; PULSE 95; RESP 20; TEMP 97.9; O2SAT 96
--- NOTE | 2025-06-26 02:54 | DVHOP ---
DATE OF SURGERY: 06/25/2025 The report of the myocardial perfusion scan done and the stress imaging. This patient's EKG has revealed normal sinus rhythm, grossly normal EKG and the patient underwent a stress test by intravenous Cardiolite EKG stress test. In the pre-exercise, the patient got intravenous technetium 99m sestamibi with the help of the. Different images of the left ventricle obtained, which include long axis, short axis, and horizontal axial view. Subsequently, the patient had another stress imaging and was given again the intravenous technetium 99m sestamibi. Stress and rest images both have been compared. There is normal perfusion of the anterior wall, lateral wall, inferior and posterior burciaga have come. Size of the left ventricle is also normal. CONCLUSION: This is a normal myocardial perfusion scan. Ejection fraction of the left ventricle is in the range of 51% and is normal. Maira Day MD MP/ROSARIO/NOLBERTO TID: [id number] RECEIPT: [id number] [facility]
[2025-06-26 05:00] VITALS: BP 104/76; PULSE 73; RESP 18; TEMP 97.9; O2SAT 96
[2025-06-26 07:23] LABS: Calcium 8.9 mg/dL (8.7-10.4); Chloride 107 mmol/L (98-107); Potassium 3.9 mmol/L (3.5-5.1); Sodium 142 mmol/L (136-145)
[2025-06-26 07:24] LABS: Anion Gap 9 (5-15); Carbon Dioxide 26 mmol/L (20-31)
[2025-06-26 07:29] LABS: BUN/Creatinine Ratio 15.1 (10.0-20.0); Blood Urea Nitrogen 16 mg/dL (9-23); Glucose 92 mg/dL (74-106)
[2025-06-26 08:00] VITALS: PULSE 72
[2025-06-26 09:00] VITALS: BP 145/90; PULSE 87; RESP 18; TEMP 98.4; O2SAT 97
--- NOTE | 2025-06-26 12:51 | DVHDSRES ---
Discharge Summary Date of Admission Resident Creating Document: YELITZA DICK RESIDENT Jun 23, 2025 at 16:14 Date of Discharge: Jun 26, 2025 Admitting Diagnosis Unstable angina Labs/Diagnostic Data: Laboratory Results Test 06/26/25 05:16 06/25/25 05:22 06/24/25 14:57 06/24/25 13:06 Sodium Level 142 mmol/L (136-145) Potassium Level 3.9 mmol/L (3.5-5.1) Chloride Level 107 mmol/L (98-107) Carbon Dioxide Level 26 mmol/L (20-31) Anion Gap 9 (5-15) Blood Urea Nitrogen 16 mg/dL (9-23) Creatinine 1.06 mg/dL (0.700-1.30) Glomerular Filtration Rate Calc 84 mL/min (>90) BUN/Creatinine Ratio 15.1 (10.0-20.0) Serum Glucose 92 mg/dL (74-106) Calcium Level 8.9 mg/dL (8.7-10.4) Magnesium Level 2.4 mg/dL (1.6-2.6) Troponin I High Sensitivity < 3 ng/L (</=54) Triglycerides Level 167 mg/dL (< 150) Cholesterol Level 200 mg/dL (< 200) LDL Cholesterol 150 mg/dL (< 100) HDL Cholesterol 37 mg/dL (40-59) Test 06/24/25 04:41 06/23/25 20:58 06/23/25 14:51 06/23/25 13:21 White Blood Count 5.7 10^3/uL (4.4-10.8) Red Blood Count 4.47 10^6/uL (4.5-5.90) Hemoglobin 14.4 g/dL (13.5-17.5) Hematocrit 40.8 % (41.0-53.0) Mean Corpuscular Volume 91.2 fL (80.0-100.0) Mean Corpuscular Hemoglobin 32.1 pg (28.0-32.0) Mean Corpuscular Hemoglobin Concent 35.2 g/dL (32.0-36.0) Red Cell Distribution Width 13.7 % (11.8-14.3) Platelet Count 201 10^3/uL (140-450) Mean Platelet Volume 9.0 fL (6.9-10.8) Neutrophils (%) (Auto) 49.7 % (37.0-80.0) Lymphocytes (%) (Auto) 35.5 % (10.0-50.0) Monocytes (%) (Auto) 10.4 % (0.0-12.0) Eosinophils (%) (Auto) 4.0 % (0.0-7.0) Basophils (%) (Auto) 0.4 % (0.0-2.0) Neutrophils # (Auto) 2.8 10 ^3/uL (1.6-8.6) Lymphocytes # (Auto) 2.0 10 ^3/uL (0.4-5.4) Monocytes # (Auto) 0.6 10 ^3/uL (0-1.3) Eosinophils # (Auto) 0.2 10 ^3/uL (0-0.8) Basophils # (Auto) 0 10 ^3/uL (0-0.2) Nucleated Red Blood Cells 0.1 % Total Bilirubin 1.2 mg/dL (0.2-1.0) Aspartate Amino Transferase (AST) 23 U/L (13-40) Alanine Aminotransferase (ALT) 30 U/L (7-40) Alkaline Phosphatase 53 U/L (46-116) Total Protein 6.7 g/dL (5.7-8.2) Albumin 4.2 g/dL (3.2-4.8) Urine Color Yellow (Yellow) Urine Clarity Clear (Clear) Urine pH 5.5 (5.0-9.0) Urine Specific [place] 1.031 (1.001-1.035) Urine Protein Trace (Negative) Urine Ketones Trace (Negative) Urine Blood 1+ /uL (Negative) Urine Nitrite Negative (Negative) Urine Bilirubin Negative (Negative) Urine Urobilinogen Normal mg/dL (Negative) Urine Leukocyte Esterase Negative /uL (Negative) Urine RBC 9 /hpf (0 - 3) Urine Microscopic WBC 2 /HPF (0-3) Urine Squamous Epithelial Cells None seen /hpf (<5) Urine Bacteria None seen /hpf (None Seen) Urine Mucus Few (None Seen) Urine Glucose Normal mg/dL (Normal) Urine Opiates Screen Neg (NEGATIVE) Urine Fentanyl Screen Neg (NEGATIVE) Urine Barbiturates Screen Neg (NEGATIVE) Urine Phencyclidine Screen Neg (NEGATIVE) Urine Amphetamines Screen Neg (NEGATIVE) Urine Benzodiazepines Screen Neg (NEGATIVE) Urine Cocaine Screen Neg (NEGATIVE) Urine Cannabinoids Screen Neg (NEGATIVE) Prothrombin Time 10.7 sec (9.3-11.8) Prothrombin Time INR 1.01 (0.9-1.15) Activated Partial Thromboplast Time 28.2 SEC (24.5-34.5) D-Dimer, Quantitative < 0.19 mg/L FEU (0.0-0.49) Thyroid Stimulating Hormone (TSH) 1.61 uIU/mL (0.55-4.78) Test 06/23/25 12:05 Hemoglobin A1c 5.7 % A1C (<5.7) B-Type Natriuretic Peptide 2.54 pg/mL (0-100) Other Laboratory Tests 06/26/25 05:16 06/24/25 04:41 Brief Hx & Hospital Course: Patient is 50 years old male with past medical history of hypertension, history of chronic vertigo came with a complaint of chest pain. As per patient he started having chest pain yesterday at work associated tingling of the left arm that came gradually. Patient reported tingling of the left arm started then followed by pain in the left chest, sharp, the on the left side of the chest, initially intermittent then persistent, 7/10, associated with shortness of breaths, palpitation. Patient also reported he was feeling dizzy at the same time. After the patient went to home and he wake up with chest pain and also tingling of the left arm. Patient denied any fever, cough, diarrhea, acute joint redness or swelling, dysarthria or change in vision. Initial lab workup revealed troponin I with a normal limit, chest x-ray no acute abnormality. EKG revealed sinus rhythm, no acute STT wave changes. Brief history of hospitalization: Patient came in with acute chest pain and hypertension. An EKG was done which showed sinus rhythm, no acute STT wave changes. Troponin I was ordered which came back within normal limits. Bringing the patient aspirin 81 mg p.o. daily and atorvastatin 40 mg p.o. q.h.s. Orthostatic vitals were done as patient also complained of feeling dizzy. They came back negative. [place]-Hallpike maneuver was done which came back as negative as well. We gave the patient meclizine PRN. Cardiac consultation was done and patient underwent a nuclear stress test. the results showed: This is a normal myocardial perfusion scan. Ejection fraction of the left ventricle is in the range of 51% and is normal. Patient has been monitored on telemetry and is feeling fine. He is stable for discharge and can go home. We have counseled the patient to meet his primary care physician regarding his anxiety and stress management. Because his ASCVD score is more than 7.5 we are giving him a moderate dose atorvastatin 20 mg HS daily. Patient has communicated understanding and agreed to the discharge plan. General Appearance: Alert, Oriented X3, Cooperative, Not in acute distress HEENT: Atraumatic, Mucous membranes moist/pink Respiratory: Clear to auscultation, Normal air movement, No added sounds Cardiovascular: Regular rate, Normal S1, Normal S2, No murmurs Abdominal: Active bowel sounds, Soft, no distention, no tenderness Extremities: No edema, Normal pulses, No tenderness/swelling Skin: No Significant rash, except past surgical scars Neuro: Normal speech, sensorimotor deficits none Psych/Mental Status: Mental status NL, Mood NL Nurse was there as pre certification specialist during examination Operations or Procedures EXAM: XY CHEST PORTABLE Indication: chest pain IMPRESSION:No acute cardiopulmonary disease. CARDIOLITE STRESS TEST DATE OF SURGERY: 06/25/2025 The report of the myocardial perfusion scan done and the stress imaging. This patient's EKG has revealed normal sinus rhythm, grossly normal EKG and the patient underwent a stress test by intravenous Cardiolite EKG stress test. In the pre-exercise, the patient got intravenous technetium 99m sestamibi with the help of the. Different images of the left ventricle obtained, which include long axis, short axis, and horizontal axial view. Subsequently, the patient had another stress imaging and was given again the intravenous technetium 99m sestamibi. Stress and rest images both have been compared. There is normal perfusion of the anterior wall, lateral wall, inferior and posterior burciaga have come. Size of the left ventricle is also normal. CONCLUSION: This is a normal myocardial perfusion scan. Ejection fraction of the left ventricle is in the range of 51% and is normal. Mica Day MD MP/ROSARIO/NOLBERTO TID: [id number] RECEIPT: [id number] DICTATED BY:MICA DAY MD DICTATED DATE/TIME:06/25/258 ELECTRONICALLY SIGNED BY:MICA DAY MD 06/26/25 0314 Condition at Discharge: Stable Final Diagnosis/Problems List #Acute chest pain, ruled out acute coronary syndrome, posibble due to anxiety # ruled out pericarditis/ musculoskeletal pain # hypertension # chronic vertigo Discharge Disposition: Home Discharge Instruct/Medications Diet: Consistent carbohydrate, Cardiac 2g Na,low cholest Activity: No Restrictions, As Tolerated Follow Up/Referral: Follow up with primary care physician in 10 days Follow up at [facility] within 2 weeks Medications: Atorvastatin 20 mg HS daily Resume all home medications Unable to Obtain Active Prescriptions or Reported Meds Discharge Statement: "Patient was advised to return to the ER or call 911 if any headaches, dizziness, shortness of breath, chest pain, abdominal pain, bleeding, fevers, or worsening of medical condition. Patient was counseled about treatment plan, medications, possible side effects, patientverbalized understanding. All questions were answered to the best of my ability. This discharge took greater then 30 minutes in planning, reviewing documentation, counseling the patient, and discussing with other team members." ASSESSMENT ASSESSMENT Assessment #Acute chest pain, ruled out acute coronary syndrome, posibble due to anxiety Date of Service: Jun 26, 2025 Billing Provider: PRERNA CAPELLAN MD, SREYA RESIDENT Jun 26, 2025 12:51
[2025-06-26 13:00] VITALS: BP_SYST 133; BP_SYST 138; BP_SYST 143; BP_DIAS 74; BP_DIAS 86; PULSE 69; RESP 17; TEMP 98.3; O2SAT 97
[2025-06-26] MEDS ORDERED: ROSU10CA PO (13:23)
[2025-06-26 14:05] VITALS: TEMP 36.8
[2025-06-26] MEDS ORDERED: AMLO1TAB22 PO (15:41)
--- NOTE | 2025-06-28 08:48 | DVHSR ---
APPROVED REPORT Exam: Nuclear Stress Test Indication: Chest pain BMI: 0 Stress Test Details Stress Test: Pharmacologic stress testing performed using 0.4 mg of regadenoson per 5 mL given IV ov er 10 seconds. HR Resting HR: 70 bpmMax Heart Rate (APMHR): 168.967459 bpm Max HR Achieved: 121 bpmTarget HR (85% APMHR): 142.420290 bpm % of APMHR: 72.02 Recovery HR: 80 bpm BP Resting BP: 129/78 mmHg Recovery BP: 137/78 mmHg ECG Resting ECG: Sinus Rhythm Clinical Reason for Termination: Completed protocol Nurse Comments Recieved pt. from [employer]. A/Ox4 on RA. Connected to monitoring specialist, VS stable. PIV flushes well. Re viewed POC. Pt. verbalized understanding of procedure including risks and side effects, agrees for st ress testing. Lexiscan stress test performed per protocol. [employer] administered Cardiolite. Pt. tolerated well . Pt. stable, no change on exam. VS returned to baseline. Transferred to [facility] [employer] Stress ECG Conclusion +anterior wall [place] lateral basal wall ischemia inferior wall ischemia abnormal study lvef 51% NM EXAM: Myocardial Perfusion REST/STRESS Imaging Protocol: Rest Tc-99m/Stress Tc-99m 1 day Resting Data Rest SPECT myocardial perfusion imaging was performed in supine position 60 minutes following the int ravenous injection of 9.9 mCi of Tc-99m Sestamibi. Time of rest injection: 07:46 Date: 06/25/2025 Time of rest imagin:46 Date: 06/25/2025 Administration Route: IV Administration Site: Left Arm Pharmacologic Stress Pharmacologic stress test was performed by injecting Regadenoson 0.4 mg IV push followed by the intra venous injection of 30.1 mCi of Tc-99m Sestamibi. Time of stress injection: 09:03 Date: 06/25/2025 Time of stress imagin:03 Date: 06/25/2025 Administration Route: IV Administration Site: Left Arm Gated Stress SPECT was performed 60 minutes after stress injection. The images were gated to evaluate regional wall motion and calculate left ventricular ejection fracti on. Stress only was performed in the Supine position. Nuclear Conclusion Nuclear Findings: positive for ischemia +anterior wall [place] lateral basal wall ischemia inferior wall ischemia abnormal study lvef 51%
--- NOTE | 2025-06-28 09:31 | ECG ---
[facility] Test Date: 2025-06-23 Test Time: 11:23:45 Pat Name: TRAY HAMMOND Department: ED Room: 0212T A Gender: M Community Support Associate: : 1975 Requested By: ZACHARY ARENAS Order Number: [id number] Reading MD: Mitchell Riddle Measurements Intervals [place] Rate: 64 P: 4 CA: 135 QRS: 29 QRSD: 87 T: -9 QT: 402 QTc: 415 Interpretive Statements Sinus rhythm Borderline T abnormalities, inferior leads Electronically Signed On 06-29-2025 15:06:39 PDT by Mitchell Riddle Please click the below link to view image of tracing.
--- NOTE | 2025-06-29 18:23 | DVHSR ---
APPROVED REPORT EXAM: Two-dimensional and M-mode echocardiogram with Doppler and color Doppler. Blood Pressure: 111/74 mmHg INDICATION Chest Pain RISK FACTORS Height: 5'7", Weight: 185 DIMENSIONS LVDd4.4 (3.8-5.7cm)LA (2D)4.1 (1.9-4.0cm)Aortic Root3.2 (2.0-3.7cm) LVDs2.7 (2.5-4.0cm)LA (MM) (1.9-4.0cm)Aortic Cusp Exc2.0 (1.5-2.0cm) EF (%) 69.0 (55-70%)Rt. Atrium4.4 (1.9-4.0cm)Asc. Aorta3.1 cm IVSd1.1 (0.7-1.1cm)RV (D)4.4 (1.8-2.4cm) PWd1.0 (0.7-1.1cm) Mitral Valve MitralMitral Stenosis E wave0.61m/sMV Mean GR.mmHg A wave0.72m/sMV Peak GR.mmHg E/A ratio0.82D MVAcm2 DECEL [id number] 1/2 [place] Aortic Valve Aortic ValveAortic Stenosis V11.15m/Andressa Mean GR.6mmHg V21.57m/Andressa Peak GR.10mmHg LVOT Diameter2.1 (1.8-2.4cm)Doppler AVA2.54cm2 Pulmonic Valve V20.93m/s Tricuspid Valve TR Velocity2.20m/s [id number] Conclusion Technically good study. Sinus bradycardia.. Concentric LVH with biatrial enlargement and RV enlargement. Valves appear to be structurally normal. Left ventricular function appears preserved. EF of 60% with normal RV function. Mild pulmonic insufficiency. Mild tricuspid regurgitation. No pericardial effusion masses or vegetations.
--- NOTE | 2025-07-04 20:34 | DVHPN2 ---
Date of Service: Jun 24, 2025 Billing Provider: PRERNA CAPELLAN MD Common Visit Codes: [id number] INP/OBS CARE(HIGH) PRERNA CAPELLAN MD Jul 04, 2025 20:34
--- NOTE | 2025-07-04 20:35 | DVHPN2 ---
Date of Service: Jun 25, 2025 Billing Provider: PRERNA CAPELLAN MD Common Visit Codes: [id number] INP/OBS CARE(HIGH) PRERNA CAPELLAN MD Jul 04, 2025 20:35
== END 2025-06-26 15:08 | disposition home or self-care (01) | DRG 313 ==
LOC: ER 11:17 → OVERFLOW 16:14 → TELE-CENTR 20:40
PROVIDERS: ADMIT Student in an Organized Health Care Education/Training Program; ATTEND Student in an Organized Health Care Education/Training Program
DX: R07.89 Other chest pain (principal); I10 Essential (primary) hypertension; F41.9 Anxiety disorder, unspecified; E66.9 Obesity, unspecified; Z68.29 Body mass index [BMI] 29.0-29.9, adult; F17.290 Nicotine dependence, other tobacco product, uncomplicated; Z83.3 Family history of diabetes mellitus; Z82.49 Family history of ischemic heart disease and other diseases of the circulatory system
CPT/HCPCS: 36415; 71045; 78452; 80048; 80053; 80061; 80307; 81001; 83036; 83735; 83880; 84443; 84484; 85025; 85379; 85610; 85730; 93005; 93017; 93306; 99291; G0378